=== PATIENT | male | born 1990 | race Hispanic/Latino ===

== ENCOUNTER 2024-09-08 09:11 | Emergency (ER) | payer BC, SELFPAY ==
[2024-09-08 09:13] VITALS: BP 124/87
--- NOTE | 2024-09-08 10:15 | ED.GENMED ---
History of Present Illness
General
Chief Complaint: Musculo-Skeletal Complaint
Source: patient
Exam Limitations: none
Time Seen by Provider: 09/08/24 09:26
Nursing documentation reviewed up to this point in time: agreed with
History of Present Illness
History of Present Illness:
34-year-old male presenting to the emergency department today with concerns of discomfort to his left knee that occurred last night after stepping awkwardly out of bed. [place] sharp pain to the knee now unable to fully extend his knee. Denies
additional concerns otherwise. No numbness or weakness. No additional trauma. History of meniscal injury
Review of Systems
Review of Systems
Allergies reviewed?: Yes
All Other Systems: ROS reviewed and negative except as documented in HPI and ROS
Phy Exam
Physical Exam
Physical Exam:
GENERAL: Alert , in no apparent distress
EYE: pupils equal and reactive
NECK: Supple, no significant adenopathy.
ENT: o/p clr, mmm.
CARDIAC: Regular rate and rhythm .
LUNGS: Clear breath sounds bilaterally, no acute respiratory distress, no wheezes/rales/rhonchi
ABDOMEN: Soft, without focal tenderness, no r/g, no cvat
NEUROLOGICAL: Alert and oriented, no focal neuro deficits
SKIN: Warm and dry, skin intact.
MUSCULOSKELETAL: No significant overlying swelling no redness or warmth inability to fully extend the knee secondary to significant pain. Able to fully flex at the knee no joint laxity. Normal ankle and hip examination. Well perfused.
PSYCH: Normal and appropriate interaction.
Course
Orders/Labs/Results
Orders:
Orders
09/08/24 09:16
CR Knee - Left 4 Or More View* Urgent
Reason For Exam: fall/pain
09/08/24 10:14
Kavin Wrap Left-Treatment ONCE
Crutches-Treatment ONCE
Vital Signs
Initial and Last Documented VS:
Initial Vital Signs
Temp Pulse Resp BP Pulse Ox
97.8 F 95 16 124/87 98
09/08/24 09:13 09/08/24 09:13 09/08/24 09:13 09/08/24 09:13 09/08/24 09:13
Last Documented Vital Signs
Temp Pulse Resp BP Pulse Ox
97.8 F 95 16 124/87 98
09/08/24 09:13 09/08/24 09:13 09/08/24 09:13 09/08/24 09:13 09/08/24 09:13
MDM/Problems Addressed
MDM/Problems Addressed:
34-year-old male presenting to the emergency department today with concerns of knee discomfort and difficulty fully extending the knee after an injury earlier this morning. Here symptoms seem to be most consistent with likely meniscal injury. Knee
was wrapped and advised for close orthopedic follow-up. Return precautions given.
*Critical Care Note
Total Time (30-74mins, 75-104mins- exclusive of procedures): Not Applicable
ED Attending Note
-
Portions of this chart may have been created with voice recognition software.� Occasional wrong word or��sound alike� substitutions may have occurred due to the inherent limitations of voice recognition software.
Discharge Plan
Departure
Patient Disposition: Home (Routine Discharge)
Date of Disposition: 09/08/24
Time of Disposition: 10:17
Patient with high blood pressure during this ER visit?: No
Condition: Good
Covid-19: Not Applicable
Discharge Problem:
Internal derangement of knee
Instructions: Sprain (DC)
Referrals:
NONE,* [Family Provider] -
Luís Landaverde MD [Active] - Follow up in 2-3 days
Activity Restrictions/Additional Instructions:
You came to the emergency department today with concerns of knee pain. This is likely a meniscal injury. Please see the orthopedic doctor this week. Return for any worsening, new or concerning symptoms.
Interventions
Interventions:
*Risk Screen - Suicide Last Done: 09/08/24 09:13
*General Assessment Last Done: 09/08/24 09:13
*Neglect/Abuse Screening Last Done: 09/08/24 09:13
Discharge Date and Time
Print Language: OCCITAN
== END 2024-09-08 10:39 | disposition home or self-care (01) ==
LOC: EMR 09:11
PROVIDERS: EMERGENCY PHYSICIAN Emergency Medicine
DX: M23.92 Unspecified internal derangement of left knee (principal)
CPT/HCPCS: 99283; 73564